=== PATIENT | male | born 2000 | race African-American/Black ===

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

== ENCOUNTER 2021-02-14 10:37 | Emergency (ER) | payer MEDICAID ==
[~2021-02-14] VITALS: Ht 185.4 cm; Wt 54.5 kg
[~2021-02-14 10:37] MED LIST: DEBROX OTIC15 ML EACH EAR
[2021-02-14 10:43] VITALS: BP 133/77; Ht 185.4 cm; Wt 54.5 kg
[2021-02-14 11:02] LABS: BASOPHILS 0.2 % (0-2); EOSINOPHILS 0.8 % (0-7); HEMOGLOBIN 15.5 g/dL (13.5-17.5); IMMATURE GRANULOCYTES 0.2 % (0-5); LYMPHOCYTE ABS# 1.68 10x3/uL (1.32-3.57); LYMPHOCYTES 35.4 % (15-50); MCH 32.4 pg (26.0-34.0); MCHC 34.4 g/dL (31.0-37.0); MCV 94.1 fL (80.0-100.0); MEAN PLATELET VOLUME 10.5 fL (7.4-10.4); MONOCYTES 10.3 % (2-11); NEUTROPHIL ABS# 2.51 10x3/uL (1.78-5.38); NEUTROPHILS 53.1 % (40-80); PLATELET COUNT 200 10x3/uL (130-400); RBC 4.78 10x6/uL (4.20-6.10); RDW 11.6 % (11.5-14.5); WBC 4.7 10x3/uL (4.8-10.8)
[2021-02-14 11:10] LABS: APTT 27.8 SECONDS (22.8-39.4); CALC OSMOLALITY 274 mosm/kg (275-300); CALCIUM 8.8 mg/dL (8.5-10.1); CARBON DIOXIDE 27.4 mmol/L (21.0-32.0); CHLORIDE - SERUM 102 mmol/L (98-107); CREATININE - SERUM 0.9 mg/dL (0.6-1.3); GLUCOSE 90 mg/dL (74-106); INR 1.21 (0.85-1.17); POTASSIUM - SERUM 3.5 mmol/L (3.5-5.1); PROTIME 14.1 SECONDS (11.6-15.0); SODIUM 138 mmol/L (136-145); UREA NITROGEN 9 mg/dL (7-18); eGFR NON AFRICAN AMERICAN > 90 mL/min (90-120)
[2021-02-14 11:26] LABS: ALBUMIN 4.2 g/dL (3.4-5.0); ALKALINE PHOSPHATASE 64 U/L (30-120); ALT (SGPT) 16 U/L (10-68); BILIRUBIN - TOTAL 1.71 mg/dL (0.2-1.3); CKMB 0.9 U/L (0.0-3.6); CREATINE KINASE 133 UL (21-232); PRO BNP 18 pg/mL (0-125); PROTEIN - SERUM 7.7 g/dL (6.4-8.2); TROPONIN-I < 0.017 ng/mL (0.000-0.060)
[2021-02-14] MEDS ORDERED: PEPCID40 MG PO (12:04)
== END 2021-02-14 12:23 | disposition home or self-care (01) ==
LOC: D.ER 10:37
PROVIDERS: Family Medicine
DX: R11.2 Nausea with vomiting, unspecified (principal); K21.9 Gastro-esophageal reflux disease without esophagitis